=== PATIENT | male | born 1995 | race Caucasian/White ===

== ENCOUNTER 2021-11-22 15:00 | Outpatient (RCR) | payer OTHER, MEDICAID, SELFPAY ==
--- NOTE | 2021-10-22 13:57 | HP.PTEVAL ---
Patient's Visit Information KARL PENNY is a 26 year old M referred to Physical Therapy by MERRY BALLESTEROS with a diagnosis of Acute lymphoblastic leukemia.. Date of Evaluation: 10/22/21 Physical Therapist: Urban Rock DPT, OCS, CSCS - Visit Plan Frequency: 3x /Week Duration: 4-6 Weeks Plan: 3x/week x 4-6 weeks starting in pool for postural, core adn LE strengthening and HS and gastroc stretch and return to function. - Subjective Cancer doctor sent over to get stronger. He has had chemo and muscle have gotten weak and legs feel like they give out and makes it hard to walk. Using SBQC to get around for last 3 months. Will get walker and WC but uses cane right now. Had ALL acute lymphoblastic leukemia but says he is CA free since last Thursday. Had chemo since February and will continue maintenance chemo for 2 years. The chemo has created muscle loss and destroyed his body. No regular exercises. Tries to move around alot. Sleeps well. No pain. No numbness . No dizzyness. Not employed. Spends days at home, Goes out with family at times. Stays home alot. Is weak. Dresses self, needs help with laundry as it is in the basement. Steps are hard. One step at a time with mesh bag. Bathroom self and I in walk in shower. Cancer has made him weak since February of last year. First symptom was back pain late last year. Used to work in furniture store and play football. Wants to play football again. No recent falls in last 3 months. - Objective R weaker. Walks with SBWC I in R UE. Exits chair slowly without UE when asked but tends to use them.Steps reciprocal with two rail up and descend using R and turning sideways to avoid leg giving out with two rails. Walks without AD today but slow and hesitant and fearful of fatiguing. Sensation LE WNL to gross light touch. reflexes 2/3 patella and reflexes. Strength hips 3+, knees 4- and ankles 4/5. core abs 3+ and back extension 4-. UE strength 4- without myotomal problems. Weakness evident on steps and exitting chair. - Balance/Special Test Scores Functional Gait Assessment Score: 29 % Disability: 3.3400 Lower Extremity Functional Score: 24 - Goals Goal 1:: Walk community without AD without fear I Goal Time Frame: 4-6 Weeks Goal 2:: Steps reciprocally with one rail up and down Goal Time Frame: 4-6 Weeks Goal 3:: Pt feel 75% b jose in mobility and able to get around Goal Time Frame: 4-6 Weeks Goal 4:: I pool exercises for home pool Goal Time Frame: 4-6 Weeks Goal 5:: 44 on LEFS Goal Time Frame: 4-6 Weeks - Rehabilitation Potential Physical Therapy Diagnosis: weakness after treatment for leukemia causing difficulty with activity. Rehabilitation Potential: Good - Anticipated Interventions Patient/Client Instruction: Educate patient on: Condition, Plan of Care For the Purpose of:: To increase ROM, To improve muscle performance and motor function, To increase tolerance to activity/condition/position, To improve gait and locomotor functions Therapeutic Exercise to Include: Strength training, Endurance training, Flexibilty training, Gait and locomotor training For the Purpose of:: To improve muscle performance and motor function, To increase tolerance to activity/condition/position, To improve ability of physical actions for home/community/work/leisure, To improve gait and locomotor functions Thank you for the opportunity to evaluate your patient. For Medicare and Medicare HMO plans, please review the plan of care and approve it. It will need to be FAXED BACK to us at [phone] for Medicare purposes. For Medicare only, by signing this I certify the plan of care. Please let me know if there are questions or concerns regarding this plan of care. Physician Signature: Date:
--- NOTE | 2021-11-22 15:35 | HP.PTREVAL ---
MERRY BALLESTEROS, It has been my pleasure to treat KARL PENNY over the last 13 visits for Acute lymphoblastic leukemia.. Please see the progress note below for an update on the physical therapy plan of care! Subjective: Its been a month already. Getting better. Not using cane at all, walking without cane almost all of the time. Did a qucik jog up to door yesterday , felt impact on knees but could do it without falling. No pain. Back can hurt sometimes up and down. Doesn't worry about falling stepping off curbs anymore. Steps at home are not a problem. Doing stretches at home for calves, has pool at home and Y. wants to continue to work on LE strength, not sure he is quite ready to do it on his own yet. R leg may give out at times. To Dr. Ballesteros in early December. Objective/Function: Chair trasnfer I without UE, steps require rail and obvious B LE weakness in ecc lowering. Tightness in anterior knees standing from lower surface. Good balance. Overall better but not ready for I in pool yet and then would like to progress to gym exercises once I in pool Plan Plan: 3x/week for 2 more weeks in pool to work to I then 2 weeks of land based gym ex to continue strengthen and work to I. Will need new script from Annalisa Cerda to continue please and patient to call and request this. Balance/Gait/Functional tests - Balance/Special Test Scores Functional Gait Assessment Score: 29 % Disability: 3.3400 Lower Extremity Functional Score: 37 Goals Goal 1:: Walk community without AD without fear I Goal Time Frame: 4-6 Weeks Goal Progress: Goal Met Goal 2:: Steps reciprocally with one rail up and down Goal Time Frame: 4-6 Weeks Goal Progress: Goal Met Goal 3:: Pt feel 75% b jose in mobility and able to get around Goal Time Frame: 4-6 Weeks Goal Progress: 65% Goal 4:: I pool exercises for home pool Goal Time Frame: 4-6 Weeks Goal Progress: Progressing Goal 5:: 44 on LEFS Goal Time Frame: 4-6 Weeks Goal Progress: Progressing Anticipated Interventions Patient/Client Instruction: Educate patient on: Condition, Plan of Care For the Purpose of:: To increase ROM, To improve muscle performance and motor function, To increase tolerance to activity/condition/position, To improve gait and locomotor functions Therapeutic Exercise to Include: Strength training, Endurance training, Flexibilty training, Gait and locomotor training, In an aquatic setting For the Purpose of:: To improve muscle performance and motor function, To increase tolerance to activity/condition/position, To improve ability of physical actions for home/community/work/leisure, To improve gait and locomotor functions Please do not hesitate to contact me at [phone] by phone or if you have questions or concerns regarding this new plan of care! Sincerely, Urban Rock, DPT, OCS, CSCS
--- NOTE | 2022-01-21 13:11 | HP.PT.NRP ---
KARL PENNY was seen in my office for initial evaluation on 10/22/21. The following Plan of Care was established for this patient: Initial Frequency: 3x /Week Initial Duration: 4-6 Weeks Patient/Client Instruction: Educate patient on: Condition, Plan of Care For the Purpose of:: To increase ROM, To improve muscle performance and motor function, To increase tolerance to activity/condition/position, To improve gait and locomotor functions Therapeutic Exercise to Include: Strength training, Endurance training, Flexibilty training, Gait and locomotor training, In an aquatic setting For the Purpose of:: To improve muscle performance and motor function, To increase tolerance to activity/condition/position, To improve ability of physical actions for home/community/work/leisure, To improve gait and locomotor functions This patient was last seen in our office 11/22/21. Pertinent comments regarding their Physical therapy will appear below: Pt seen for initial POC and was 65% better. It was thought that he could benefit from 4 more weeks of therapy but patient did not schedule or attend these visits. At this point, it has been nearly two months and I will discontinue form my care. At this point I will be discontinuing this patient from physical therapy. I would be happy to see this patient again in the future if found appropriate by the physician. Thank you! Urban Rock, DPT, OCS, CSCS Balance/Gait/Functional tests - Balance/Special Test Scores Functional Gait Assessment Score: 29 % Disability: 3.3400 Lower Extremity Functional Score: 37
== END 2021-11-22 19:00 | disposition home or self-care (01) ==
LOC: PT 15:00
PROVIDERS: PCP Pediatrics
DX: M62.81 Muscle weakness (generalized) (principal); C91.00 Acute lymphoblastic leukemia not having achieved remission; Z79.52 Long term (current) use of systemic steroids; Z79.899 Other long term (current) drug therapy
CPT/HCPCS: 97113; 97162; 97164

== ENCOUNTER 2022-03-14 16:00 | Outpatient (RCR) | payer OTHER, MEDICAID, SELFPAY ==
--- NOTE | 2022-02-10 16:58 | HP.PTEVAL ---
Patient's Visit Information KARL PENNY is a 26 year old M referred to Physical Therapy by JAKE BALLESTEROS with a diagnosis of acute lymphoblastic leukemia. Date of Evaluation: 02/10/22 Physical Therapist: Atif Scales, PT, ATC - Visit Plan Frequency: 2-3x /Week Duration: 4-6 Weeks Plan: B LE strengthening, balance and proprio, core strengthening, bike, and HEP - Subjective Pt reports in February of 2021 he was diagnosed with cancer. Pt reports he had severe back pain that would not go away. Pt reports he had to have a lot of heavy chemo in order to get rid of the cancer. Pt reports this summer he was told he was finally cancer free. Pt reports he is now on a maintenance plan where he takes chemo pills and other treatments. Pt reports now he is just really weak. Pt notes he did have to walk with a cane a few mos ago, but is doing much better now. Pt is not currently working, but is hoping to work as soon as he gets stronger. Pt denies tingling and numbness at this time. Pt reports he has stairs at home and has no difficulty with stair negotiation. Pt reports he plans on being able to play semipro football when he recovers. Pt is not in any pain today. Pt reports he has balance concerns when he gets weak. - Objective Neuro: B LE sensation is WNL to light touch. B patellar reflex= 1/3. ROM: B LE's are WFL when compared bilaterally. MMT: B LE's are grossly 4/5 throughout. Stairs: Pt can ascend and descend 10 stairs without difficulty. Gait: Pt is able to ambulate greater than 1000 feet without difficulty - Balance/Special Test Scores Lower Extremity Functional Score: 46 - Goals Goal 1:: Increase B LE strength x 1 grade to aid with IADL's Goal Time Frame: 4-6 Weeks Goal 2:: I with HEP Goal Time Frame: 4-6 Weeks Goal 3:: Pt will be able to perform RTW requirements without limitation Goal Time Frame: 4-6 Weeks - Rehabilitation Potential Physical Therapy Diagnosis: Pt has LE weakness, decreased tolerance for activity, and difficulty with work requirements secondary to lymphoblatic leukemia Rehabilitation Potential: Good - Anticipated Interventions Patient/Client Instruction: Educate patient on: Condition, Plan of Care For the Purpose of:: To improve self management Therapeutic Exercise to Include: Strength training, Endurance training, Balance training, Dynamic Lumbar Stabilization For the Purpose of:: To improve muscle performance and motor function, To improve ability to perform ADL's, To improve ability of physical actions for home/community/work/leisure Thank you for the opportunity to evaluate your patient. For Medicare and Medicare HMO plans, please review the plan of care and approve it. It will need to be FAXED BACK to us at [phone] for Medicare purposes. For Medicare only, by signing this I certify the plan of care. Please let me know if there are questions or concerns regarding this plan of care. Physician Signature: Date:
--- NOTE | 2022-08-14 18:03 | HP.PT.NRP ---
KARL PENNY was seen in my office for initial evaluation on 02/10/22. The following Plan of Care was established for this patient: Initial Frequency: 2-3x /Week Initial Duration: 4-6 Weeks Patient/Client Instruction: Educate patient on: Condition, Plan of Care For the Purpose of:: To improve self management Therapeutic Exercise to Include: Strength training, Endurance training, Balance training, Dynamic Lumbar Stabilization For the Purpose of:: To improve muscle performance and motor function, To improve ability to perform ADL's, To improve ability of physical actions for home/community/work/leisure This patient was last seen in our office . Pertinent comments regarding their Physical therapy will appear below: Pt was treated for 9 PT visits for weakness through the date of 03/14/22. Pt has not returned through todays date and is discontinued at this time. At this point I will be discontinuing this patient from physical therapy. I would be happy to see this patient again in the future if found appropriate by the physician. Thank you! Atif Scales, PT, ATC Balance/Gait/Functional tests - Balance/Special Test Scores Lower Extremity Functional Score: 46
== END 2022-03-14 19:00 | disposition home or self-care (01) ==
LOC: PT 16:00
PROVIDERS: PCP Pediatrics
DX: C91.00 Acute lymphoblastic leukemia not having achieved remission (principal)
CPT/HCPCS: 97110; 97161

== ENCOUNTER 2022-07-11 14:12 | Emergency (ER) | payer OTHER, MEDICAID, SELFPAY ==
[2022-07-11 14:13] VITALS: BP 167/86; PULSE 85; RESP 14; TEMP 36.1; O2SAT 97; BMI 46.1
--- NOTE | 2022-07-11 14:27 | EDS_ITS ---
HPI <IRASEMA Garcia - Last Filed: 07/11/22 16:40> History of Present Illness Chief Complaint: Ear Problem Narrative Narrative: 27-year-old male is here with left ear pain. He states he has ALL and gets chemo and regular lumbar punctures. His last LP was 8 days ago and since then he started to have left facial and ear pain. He saw his oncologist 2 days ago who said he had ear infections and placed him on Augmentin and Polytrim drops. He has been using these with no improvement. He feels a full weakness and occasional ringing in his left ear. No fever or chills. [facility] <IRASEMA Garcia - Last Filed: 07/11/22 16:40> [facility] Medical History (Updated 07/11/22 @ 17:[address] Ezra Johansen MD) Leukemia Port-A-Cath in place Presence of IVC filter Home Medications dexamethasone 4 mg tablet mg 07/11/22 [History Last Taken Unknown] doxycycline hyclate 100 mg capsule 100 mg PO BID 7 days #14 caps 07/11/22 [Rx Last Taken Unknown] enoxaparin 120 mg/0.8 mL subcutaneous syringe 120 mg subcut BID 07/11/22 [History Last Taken Unknown] mercaptopurine 50 mg tablet 50 mg PO DAILY 07/11/22 [History Last Taken Unknown] Allergy/AdvReac Type Severity Reaction Status Date / Time No Known Allergies Allergy Verified 07/11/22 14:13 Social History Smoking Status: Never smoker ROS <IRASEMA Garcia - Last Filed: 07/11/22 16:40> ROS ED ROS Narrative Constitutional: Negative for fever, chills, malaise. ENT: Positive for ear pain. Negative for sore throat, rhinorrhea. CVS: Negative for palpitations, chest pain. Respiratory: Negative for shortness of breath, cough. Neuro: Negative for headache. Skin: Negative for rash, abscess, or wound. Musc: Negative for joint pain, swelling, trauma. EXAM <IRASEMA Garcia - Last Filed: 07/11/22 16:40> Physical Exam Narrative Exam Narrative: CONST: Patient sitting in no acute distress. EYES: Normal inspection. ENT: Normal inspection, moist mucous membranes and normal oropharynx. Nares clear. Right TM appears normal, left ear canal has small amount of yellow debris and erythema of the TM with bullous myringitis. No perforation. No external swelling or tenderness over the tragus or auricle, no mastoid erythema swelling or tenderness. NECK: Normal inspection. RESP: No respiratory distress, CTAB. CVS: Regular rate and rhythm, no murmur, no gallop. SKIN: Color normal, no rash, warm, dry, intact. EXTREMITIES: Normal appearance, no pedal edema. NEURO: Oriented x4. PSYCH: Normal affect. Const Vital Signs: 07/11/22 14:13 Temperature 97.0 F L Temperature Source Temporal Pulse Rate 85 Respiratory Rate 14 Blood Pressure 167/86 H Blood Pressure Mean 113 Pulse Ox 97 Oxygen Delivery Method Room Air <Dr. Ezra Johansen MD - Last Filed: 07/11/22 17:18> Physical Exam Const Vital Signs: 07/11/22 14:13 Temperature 97.0 F L Temperature Source Temporal Pulse Rate 85 Respiratory Rate 14 Blood Pressure 167/86 H Blood Pressure Mean 113 Pulse Ox 97 Oxygen Delivery Method Room Air <Dr. Ezra Johansen MD - Last Filed: 07/11/22 17:18> MDM MDM Narrative Medical decision making narrative: I have personally performed a face to face assessment of the patient and have reviewed the ANGELA Note. I performed a substantive portion of the visit including all aspects of the following. My culp findings include: History is complaining of left ear pain. He was prescribed Augmentin and Cortisporin otic drops on Thursday. He presents because of persistent symptoms. He denies loss of hearing. His hearing may be slightly muffled at best. He does use a Q-tip to clean his ears. He has not been in any water recently. He denies headache. He denies visual or ocular symptoms. He denies upper respiratory symptoms. Exam is left TM is consistent with bullous myringitis. Since there is a 4 to 8% incidence of mycoplasma infection will change antibiotic from Augmentin to doxycycline. Recommend continued use of Cortisporin drops. Of note he does not have discomfort with pulling of the left auricle or pushing on the left tragus. There is evidence though of inflammation of the external auditory canal. There is no narrowing of the canal. Medical Decision Making change antibiotic as described and continue eardrops. Other additions or changes: [None] Discharge Plan Triage Chief Complaint: Ear Problem ED Midlevel Provider: Angela Lundy ED Provider: Ezra Johansen Dx/Rx/DC Orders Clinical Impression: Acute pain of left ear, Bullous myringitis of left ear, Elevated blood pressure reading Instructions: ED Otitis Media Antibiotic ... Prescriptions: New doxycycline hyclate 100 mg capsule 100 mg PO BID 7 Days Qty: 14 0RF No Action dexamethasone 4 mg tablet mercaptopurine 50 mg tablet 50 mg PO DAILY enoxaparin 120 mg/0.8 mL syringe 120 mg subcut BID Primary Care Provider: Maria Isabel Landaverde Referrals: Maria Isabel Landaverde MD [Primary Care Provider] - Gaurang Whitman MD [Med Staff - Active Staff] - Activity Restrictions/Additional Instructions: Stop taking the amoxicillin/clavulanate and start taking doxycycline. Keep using the eardrops. I provided the phone number for the ear nose throat doctor if you are still having pain next week please be seen by their office. Disposition Disposition: Home, Self Care Discharge Date/Time: 07/11/22 14:53
[2022-07-11] MEDS: Doxycycline 100 MG CAPSULE PO (14:40)
== END 2022-07-11 14:53 | disposition home or self-care (01) ==
LOC: ED 14:47
PROVIDERS: Emergency Provider Emergency Medicine; PCP Pediatrics; Visit Provider Emergency Medicine
DX: H73.012 Bullous myringitis, left ear (principal); R51.9 Headache, unspecified; R03.0 Elevated blood-pressure reading, without diagnosis of hypertension
CPT/HCPCS: 99283; A4216

== ENCOUNTER 2022-10-19 15:49 | Emergency (ER) | payer OTHER, MEDICAID, SELFPAY ==
[2022-10-19] VITALS (9 sets, daily range): BP systolic 119–144; BP diastolic 58–78; PULSE 88–127; RESP 18–32; TEMP 37.2–39.5; O2SAT 96–127; BMI 48.2
--- NOTE | 2022-10-19 16:04 | EDS_ITS ---
HPI History of Present Illness Chief Complaint: Fever Informant: patient and parent Onset/Context/Timing Onset: Today Narrative Narrative: Patient presents secondary to fever. He has a history of ALL. Mother states today he was complaining of achiness in his back and legs along with a headache. She checked his temperature this morning and it was elevated. She spoke with the oncology team at [facility] and was instructed to give him Tylenol. 4 hours after Tylenol temperature was rechecked and was up to 103. At that time they recommended he come in for evaluation. Patient is a receiving a continuous infusion of a blend of antibodies in preparation for a bone marrow transplant which is scheduled for December. They state that he is not currently on chemotherapy but is still considered to be immunocompromised. He has not had significant cough or shortness of breath. He has had no vomiting or diarrhea. He denies urinary symptoms. He denies rash or skin lesions. I did note on a prior visit documentation that the patient receives regular LPs. He states the last LP was at least 6 weeks ago. He did not develop symptoms until late last night or early this morning. [facility] Medical History Leukemia Port-A-Cath in place Presence of IVC filter Home Medications dexamethasone 4 mg tablet mg 07/11/22 [History Last Taken Unknown] doxycycline hyclate 100 mg capsule 100 mg PO BID 7 days #14 caps 07/11/22 [Rx Last Taken Unknown] enoxaparin 120 mg/0.8 mL subcutaneous syringe 120 mg subcut BID 07/11/22 [History Last Taken Unknown] mercaptopurine 50 mg tablet 50 mg PO DAILY 07/11/22 [History Last Taken Unknown] Allergy/AdvReac Type Severity Reaction Status Date / Time nickel AdvReac Rash Verified 10/19/22 15:53 Social History Smoking Status: Never smoker ROS ROS ED Constitutional Constitutional ED: Reports fever(s) Eyes Eyes: Denies change in vision or discharge from eye(s) ENT ENT ED: Denies discharge from eye(s), rhinorrhea or sore throat Cardiovascular Cardiovascular: Denies chest pain or palpitations Respiratory/Chest Respiratory/Chest: Denies cough or dyspnea Gastrointestinal Gastrointestinal: Denies abdominal pain, diarrhea, nausea or vomiting Genitourinary Genitourinary ED: Denies dysuria Musculoskeletal Musculoskeletal: Reports back pain, extremity pain and myalgias Integumentary Denies Abrasions or rash Neurologic Neurologic: Reports headache(s); Denies weakness Psychiatric Psychiatric: Denies anxiety or depression Allergic/Immunologic Allergic/Immunologic ED: Denies lip swelling or urticaria EXAM Physical Exam Const Vital Signs: 10/19/22 15:51 10/19/22 16:02 10/19/22 16:25 Temperature 101.6 F H Temperature Source Oral Pulse Rate 127 H 113 H Respiratory Rate 20 H 32 H Respiratory Pattern Blood Pressure 144/77 H Blood Pressure Mean 99 Pulse Ox 127 97 97 Oxygen Delivery Method Room Air Room Air Room Air 10/19/22 16:25 10/19/22 17:03 10/19/22 17:23 Temperature 103.1 F H Temperature Source Oral Pulse Rate 112 H 107 H Respiratory Rate 30 H 27 H Respiratory Pattern Tachypnea Blood Pressure 142/78 H 121/61 H Blood Pressure Mean 99 81 Pulse Ox 97 96 Oxygen Delivery Method Room Air Room Air Positive well nourished and well developed General Appearance ED: well developed HEENT Reports moist mucous membranes Eyes PERRL and EOMs intact bilaterally Neck no lymphadenopathy Neck Narrative: No meningismus. Chest Wall inspection of chest normal and palpation of chest normal Resp normal respiratory effort and clear to auscultation bilaterally Cardio regular rhythm Rate: tachycardic GI non-tender Auscultation: hypoactive bowel sounds Palpation: soft Extremity normal to inspection Neuro oriented x3 and no sensory deficits noted Motor Exam: strength 5/5 throughout Psych mental status grossly normal Skin no rashes or lesions noted MDM MDM MDM Narrative Medical decision making narrative: Sepsis work-up was initiated. Patient given Tylenol on arrival for fever of 101.6. Swab for COVID and influenza added to the sepsis work-up. Lab Data Attestation: I reviewed the patient's lab results. Labs: Laboratory Results - last 24 hr 10/19/22 10/19/22 10/19/22 16:15 16:15 16:15 WBC 2.2 L RBC 3.97 L Hgb 12.5 L Hct 37.3 L MCV 94.0 MCH 31.5 MCHC 33.5 RDW Std Deviation 64.0 H RDW Coeff of Jacqueline 18.6 H Plt Count 96 L MPV 9.3 Immature Gran % (Auto) 0.000 Neut % (Auto) 45.1 L Lymph % (Auto) 16.7 L Lasalle % (Auto) 1.9 Eos % (Auto) 35.8 H Baso % (Auto) 0.5 Absolute Neuts (auto) 1.0 L Absolute Lymphs (auto) 0.36 L Nucleated RBC % 0 Differential Comment SCANNED Diff Path Review May foll PT 15.3 H INR 1.2 APTT 38.3 H Sodium 135 L Potassium 3.8 Chloride 103 Carbon Dioxide 25.0 Anion Gap 7 BUN 16 Creatinine 1.07 Estim Creat Clear Calc 119.27 Est GFR (MDRD) Af Amer 108 Est GFR (MDRD) Non-Af 89 BUN/Creatinine Ratio 15.0 Glucose 118 H Lactic Acid Calcium 8.7 Total Bilirubin 1.50 H AST 22 ALT 27 Alkaline Phosphatase 84 Total Protein 7.1 Albumin 3.3 Globulin 3.8 Albumin/Globulin Ratio 0.9 10/19/22 16:15 WBC RBC Hgb Hct MCV MCH MCHC RDW Std Deviation RDW Coeff of Jacqueline Plt Count MPV Immature Gran % (Auto) Neut % (Auto) Lymph % (Auto) Lasalle % (Auto) Eos % (Auto) Baso % (Auto) Absolute Neuts (auto) Absolute Lymphs (auto) Nucleated RBC % Differential Comment Diff Path Review PT INR APTT Sodium Potassium Chloride Carbon Dioxide Anion Gap BUN Creatinine Estim Creat Clear Calc Est GFR (MDRD) Af Amer Est GFR (MDRD) Non-Af BUN/Creatinine Ratio Glucose Lactic Acid 1.3 Calcium Total Bilirubin AST ALT Alkaline Phosphatase Total Protein Albumin Globulin Albumin/Globulin Ratio Radiography Chest X-Ray - ED: 1 View, Read by ED Physician, No Infiltrates and - (Port in place in right chest.) Diagnostic Testing: Clinical Impression(s) from Imaging Studies Chest X-Ray 10/19/22 16:30 IMPRESSION: Right jugular Port-A-Cath. There is no acute cardiopulmonary disease. Electronically Signed: Bin Trevino DO at 16:53 EDT Reading Location ID and State: [address] [place] [address] Tel [phone], Service support , EKG Initial EKG: Attestation: I personally reviewed and interpreted this EKG as follows: Interpretation: Sinus Tachycardia (Sinus tach at 117 with no acute ischemia.) Treatment and Re-Evaluation :: Blood and urine cultures have been sent. CBC reveals a white count of 2.2 with 1000 absolute neutrophils. This does qualify as neutropenic fever. Hemoglobin is 12.5 and platelet count is 96,000. Coags reveal an INR of 1.2. Chemistry studies are unremarkable with normal renal function. LFTs reveal a total bili of 1.50, otherwise all values normal. Lactic acid is normal at 1.3. Swab for COVID and influenza is negative. Patient has not yet been able to provide a urine sample for us. Given his labs do confirm neutropenic fever he was ordered a dose of Zosyn. 1 hour after receiving Tylenol his repeat temperature is increased to 103. I spoke with Dr. Colin, on-call for heme-onc at [facility]. He does state that it is okay for single dose ibuprofen intermittently, however use with caution given his thrombocytopenia. He will be given ibuprofen. He also requested a dose of 8 mg of IV dexamethasone due to concern for possible c ytokine release syndrome given the antibody infusion he is receiving. Patient has been accepted in transfer and we will await bed assignment at [facility]. Discharge Plan Triage Chief Complaint: Fever ED Provider: Eufemia Coley Dx/Rx/DC Orders Clinical Impression: Neutropenic fever Prescriptions: No Action dexamethasone 4 mg tablet mercaptopurine 50 mg tablet 50 mg PO DAILY enoxaparin 120 mg/0.8 mL syringe 120 mg subcut BID doxycycline hyclate 100 mg capsule 100 mg PO BID 7 Days Qty: 14 0RF Primary Care Provider: Care Physician,No Primary Referrals: [facility] Doctor,Out of [Non-Staff] - Disposition Disposition: Acute Care Hospital Discharge Location: [facility]
[2022-10-19] MEDS: Acetaminophen 500 MG Tablet 1000 MG PO (16:14)
--- NOTE | 2022-10-19 16:30 | RAD_ITS ---
STUDY: X-RAY CHEST REASON FOR EXAM: Male, 27 years old. Fever of 103 with back pain. TECHNIQUE: Single AP portable view of the chest. COMPARISON: None. FINDINGS: Right jugular Port-A-Cath with its tip in the atrial caval junction. The lungs are clear and expanded. There is no demonstrated pleural abnormality. Normal size heart. Normal mediastinum and zeus. Normal visualized pulmonary arteries. Normal visualized aortic arch and descending thoracic aorta. Normal visualized thoracic spine. Normal visualized ribs, clavicles, and shoulders. There is no demonstrated abnormality of the visualized soft tissue structures of the upper abdomen. RAD/Chest 1 View (Portable) IMPRESSION: Right jugular Port-A-Cath. There is no acute cardiopulmonary disease. Electronically Signed: Bin Trevino DO at 16:53 EDT ,
[2022-10-19 16:32] LABS: Absolute Lymphocyte Count 0.36 X10^3/uL (0.83-4.51); Basophil# 0.01 X10^3/uL; Basophil% 0.5 % (0-1); Eosinophil# 0.77 X10^3/uL; Eosinophils% 35.8 % (0-5); Hematocrit 37.3 % (40-54); Hemoglobin 12.5 g/dL (13.0-16.5); Lymphocyte # 0.36 X10^3/ul (0.83-4.51); Lymphocyte % 16.7 % (19-41); Mean Corp Hgb Conc 33.5 g/dL (32-36); Mean Corpuscular Hgb 31.5 pg (27.0-32.0); Mean Platelet Vol. 9.3 fl (6.2-12.0); Monocyte# 0.04 X10^3/uL; Monocyte% 1.9 % (0-10); NRBC Flagged by Analyzer 0 % (0-5); Neutrophil # 0.97 X10^3/uL (2.7-7.7); Neutrophil % 45.1 % (47-70); POSITIVE COUNT YES; POSITIVE DIFFERENTIAL YES; Platelet Count 96 K/mm3 (150-450); RBC Distribution Width CV 18.6 % (11.6-14.6); Red Blood Count 3.97 M/mm3 (4.6-6.2); White Blood Count 2.2 K/mm3 (4.4-11.0)
[2022-10-19 16:40] LABS: International Normalized Ratio 1.2; Prothrombin Time (Protime)PT. 15.3 SECONDS (11.7-14.9)
[2022-10-19 16:41] LABS: Partial Thromboplast Time 38.3 Seconds (24.1-36.2)
[2022-10-19 16:47] LABS: ALB/GLOB Ratio 0.9 RATIO (0.9-2.4); AST(SGOT) 22 U/L (15-37); Alanine Aminotransfer ALT/SGPT 27 U/L (16-61); Albumin, Serum 3.3 g/dL (3.2-5.0); Alkaline Phosphatase 84 U/L (45-117); Anion Gap 7 (5-15); BUN 16 mg/dL (7-18); Calcium,Total 8.7 mg/dL (8.5-10.1); Chloride 103 mmol/L (98-107); Creatinine, Serum 1.07 mg/dL (0.70-1.30); EST Glomerular Filtration Rate 89 mL/min (>60); Est Glom Filt Rate - Afr Amer 108 mL/min (>60); Estimated Creatinine Clearance 119.27 ml/min; Globulin 3.8 g/dL (2.2-4.2); Glucose 118 mg/dL (74-106); Potassium 3.8 mmol/L (3.5-5.1); Protein, Total 7.1 g/dL (6.4-8.2); Sodium Level 135 mmol/L (136-145)
[2022-10-19 16:48] LABS: Differential Indicated SCAN CRITERIA MET
[2022-10-19 16:56] LABS: Lactic Acid 1.3 mmol/L (0.4-1.9)
[2022-10-19 17:24] LABS: Differential Comment SCANNED
[2022-10-19] MEDS: Ibuprofen 600 MG Tablet PO (18:10)
[2022-10-19] MEDS: dexAMETHasone 10 MG/ML Vial 8 MG IV (18:11)
[2022-10-19] MEDS: 0.9% Normal Saline 1,000 ML 150 ML IV (19:00)
--- NOTE | 2022-10-19 19:18 | ED.RN ---
ABLE TO URINATE AT THIS TIME SPECIMEN COLLECTED. POST ANTIBIOTIC
[2022-10-19 19:19] LABS: Mucous, Urine 0 SEEN /hpf (<or=2+); Red Blood Cells-Urine 0 SEEN /hpf (0-5); Squamous Epithelial Cells - UA 0 SEEN /hpf (0-5); White Blood Cells 0 SEEN /hpf (0-5)
[2022-10-19 19:22] LABS: Color, Urine Yellow (Yellow); Glucose, Dipstick Normal (Normal); Ketone-Dipstick Negative (Negative); Leukocyte Esterase-Dipstick Negative /ul (Negative); Nitrite-Dipstick Negative (Negative); Occult Blood-Urine Negative /ul (Negative); Protein-Dipstick 30 mg/dl (Negative); Urine Bilirubin Dipstick Negative (Negative); Urine Clarity Clear (Clear); Urine Urobilinogen Normal (Normal)
[2022-10-19 19:31] LABS: Bacteria RARE /hpf (None Seen)
[2022-10-20 13:11] LABS: Pathologist Review Reviewed
== END 2022-10-19 20:12 | disposition short-term general hospital (02) ==
PROVIDERS: Emergency Provider Emergency Medicine; Visit Provider Emergency Medicine
DX: D70.9 Neutropenia, unspecified (principal); D84.9 Immunodeficiency, unspecified; D69.6 Thrombocytopenia, unspecified; R51.9 Headache, unspecified
CPT/HCPCS: 71045; 80053; 81001; 83605; 85025; 85610; 85730; 87040; 87086; 87428; 93005; 96361; 96365; 96375; 99285; J7030; J7050; A4216

== ENCOUNTER 2023-09-05 13:51 | Emergency (ER) | payer MEDICARE, MEDICAID, SELFPAY ==
[2023-09-05 13:52] VITALS: BP 123/81; PULSE 100; RESP 16; TEMP 36.2; O2SAT 98; BMI 41.7
--- NOTE | 2023-09-05 15:31 | EX.ED.DYSGE1 ---
HPI <IRASEMA Dumont - Last Filed: 09/05/23 19:51> History of Present Illness Chief Complaint: Lower Extremity Injury Narrative Narrative: Patient presenting today with bilateral anterior knee pain that started this morning when he woke up. He denies any injury or trauma to his knees. He reports that he has noticed slight bilateral leg edema over the past 3 to 4 days. He reports that he does have a remote history of DVT in his left lower extremity and IVC filter. He was started back on his Eliquis over a month ago due to stable platelet levels and is compliant with this. He does have a history of ALL and had a bone marrow transplant in January. He is no longer on chemotherapy and has been stable in regards to his ALL. PFS <IRASEMA Dumont - Last Filed: 09/05/23 19:51> [facility] Medical History Leukemia Port-A-Cath in place Presence of IVC filter Home Medications dexamethasone 4 mg tablet mg 07/11/22 [History Last Taken Unknown] doxycycline hyclate 100 mg capsule 100 mg PO BID 7 days #14 caps 07/11/22 [Rx Last Taken Unknown] enoxaparin 120 mg/0.8 mL subcutaneous syringe 120 mg subcut BID 07/11/22 [History Last Taken Unknown] mercaptopurine 50 mg tablet 50 mg PO DAILY 07/11/22 [History Last Taken Unknown] Allergy/AdvReac Type Severity Reaction Status Date / Time nickel AdvReac Rash Verified 09/05/23 13:52 Social History Smoking Status: Never smoker ROS <IRASEMA Dumont - Last Filed: 09/05/23 19:51> ROS ED Constitutional Constitutional ED: Denies chills or fever(s) Cardiovascular Cardiovascular: Denies chest pain Respiratory/Chest Respiratory/Chest: Denies cough or dyspnea Gastrointestinal Gastrointestinal: Denies abdominal pain, nausea or vomiting Musculoskeletal Musculoskeletal: Reports arthralgias; Denies myalgias Integumentary Denies rash Neurologic Neurologic: Denies weakness EXAM <IRASEMA Dumont - Last Filed: 09/05/23 19:51> Physical Exam Const Vital Signs: 09/05/23 13:52 09/05/23 15:38 Temperature 97.1 F L Temperature Source Temporal Pulse Rate 100 Respiratory Rate 16 Respiratory Effort Normal Respiratory Pattern Normal Blood Pressure 123/81 H Blood Pressure Mean 95 Pulse Ox 98 Oxygen Delivery Method Room Air Positive well nourished, well developed and no apparent distress General Appearance ED: well developed HEENT Reports normocephalic and head/scalp atraumatic Mouth ED: Yes moist mucous membranes normal Eyes PERRL and EOMs intact bilaterally Neck full ROM and supple Chest Wall inspection of chest normal Resp normal respiratory effort and clear to auscultation bilaterally Cardio regular rate and regular rhythm GI soft to palpation, non-tender, non-distended and no masses Back/Spine normal ROM and normal to inspection Extremity normal to inspection and full ROM Extremity Narrative: No joint effusion or erythema to the bilateral knees, full range of motion to the knees bilaterally. No pain to palpation to the knees. Bilateral DP pulse 2+, good capillary refill, sensation intact. Very slight edema to the bilateral lower extremities, this is equal. Negative Homans' sign bilaterally. Neuro oriented x3, CN's II-XII intact bilaterally, moves all extremities, no focal motor deficits and no sensory deficits noted Sensorium / Orientation: awake and alert Psych mental status grossly normal and thought process normal Skin no rashes or lesions noted and no wounds <oJse Luis Diego MD - Last Filed: 09/05/23 21:16> Physical Exam Const Vital Signs: 09/05/23 13:52 09/05/23 15:38 Temperature 97.1 F L Temperature Source Temporal Pulse Rate 100 Respiratory Rate 16 Respiratory Effort Normal Respiratory Pattern Normal Blood Pressure 123/81 H Blood Pressure Mean 95 Pulse Ox 98 Oxygen Delivery Method Room Air [facility] <IRASEMA Dumont - Last Filed: 09/05/23 19:51> [facility] Narrative Medical decision making narrative: Patient presenting due to bilateral knee pain that started this morning when he woke up. He has felt like his bilateral lower extremities have been slightly swollen over the past few days. He does not have any joint effusion or erythema, no signs of septic joint to his knees bilaterally. Negative Homans' sign bilaterally. Low suspicion for DVT given he is on Eliquis. We do not currently have ultrasound capabilities to performed venous duplex ultrasounds, however did offer to refer patient for outpatient testing tomorrow. Patient declines and reports he would rather follow-up with his PCP. I did consider obtaining an x-ray of the knees bilaterally, however, given patient did not have any injury to his knees I do not feel this will be helpful. RICE instructions were discussed, he will be discharged home in stable condition and is comfortable with plan. <Jose Luis Diego MD - Last Filed: 09/05/23 21:16> [facility] Narrative Medical decision making narrative: Patient presenting due to bilateral knee pain that started this morning when he woke up. He has felt like his bilateral lower extremities have been slightly swollen over the past few days. He does not have any joint effusion or erythema, no signs of septic joint to his knees bilaterally. Negative Homans' sign bilaterally. Low suspicion for DVT given he is on Eliquis. We do not currently have ultrasound capabilities to performed venous duplex ultrasounds, however did offer to refer patient for outpatient testing tomorrow. Patient declines and reports he would rather follow-up with his PCP. I did consider obtaining an x-ray of the knees bilaterally, however, given patient did not have any injury to his knees I do not feel this will be helpful. EDUARDO instructions were discussed, he will be discharged home in stable condition and is comfortable with plan. Dr. Diego: I have personally performed a face to face assessment of the patient and have reviewed the ANGELA Note. I performed a substantive portion of the visit including all aspects of the following. My culp findings include: History is bilateral inner thigh pain, left greater than right, history of DVT in left lower extremity. Patient was off his Eliquis since January, but started it again a month ago because his platelets were high enough. He did not have pain in his left leg until today. He states yesterday everything was fine. He has not missed a dose of his Eliquis. Exam is afebrile. Vital signs noted. Regular rate and rhythm. Lungs clear to auscultation bilaterally. Abdomen soft nontender with normoactive bowel sounds. Mild tenderness to palpation left distal femur medially, no erythema, no palpable cord. Medical Decision Making: Lengthy discussion with the patient and his mother regarding ultrasound. I have low suspicion for DVT as the patient has been on Eliquis for a month so I feel that he is properly anticoagulated. Ultrasound was offered as an outpatient as it is unavailable at this time, but they declined. They prefer to follow-up with their cancer center in [place]. [id number] medications. Discharge. Other additions or changes: [None] History & Record Review Discussion w/independent historian: Patient and Family (Mother) Discharge Plan Triage Chief Complaint: Lower Extremity Injury Other Complaint: Other, Pain/Inj ED Midlevel Provider: Stefania Garcia ED Provider: Jose Luis Deigo Dx/Rx/DC Orders Clinical Impression: Bilateral leg edema, Bilateral knee pain Instructions: ED Peripheral Edema, Bilateral, ED Knee Pain of Uncertain Cause Prescriptions: No Action dexamethasone 4 mg tablet mercaptopurine 50 mg tablet 50 mg PO DAILY enoxaparin 120 mg/0.8 mL syringe 120 mg subcut BID doxycycline hyclate 100 mg capsule 100 mg PO BID 7 Days Qty: 14 0RF Primary Care Provider: Care Physician,No Primary Referrals: Care Physician,No Primary [Primary Care Provider] - Activity Restrictions/Additional Instructions: Follow-up with your PCP and return for any worsening of your symptoms. Disposition Disposition: Home, Self Care Discharge Date/Time: 09/05/23 15:40
== END 2023-09-05 15:40 | disposition home or self-care (01) ==
PROVIDERS: Emergency Provider Emergency Medicine; Visit Provider Emergency Medicine
DX: R60.0 Localized edema (principal); C91.01 Acute lymphoblastic leukemia, in remission; M25.562 Pain in left knee; M25.561 Pain in right knee; Z86.718 Personal history of other venous thrombosis and embolism; Z79.01 Long term (current) use of anticoagulants
CPT/HCPCS: 99283

== ENCOUNTER 2023-09-27 20:32 | Emergency (ER) | payer MEDICARE, MEDICAID, SELFPAY ==
[2023-09-27 20:32] VITALS: BP 141/68; PULSE 93; RESP 18; TEMP 37; O2SAT 99; BMI 43.9
[2023-09-27 20:35] VITALS: BP 141/68; PULSE 86; PULSE 95; RESP 18; RESP 19; TEMP 37; O2SAT 98
--- NOTE | 2023-09-27 21:00 | EX.ED.DYSGE1 ---
HPI <IRASEMA Garcia - Last Filed: 09/27/23 22:05> History of Present Illness Chief Complaint: Lower Extremity Injury Narrative Narrative: 28-year-old male with past medical history of ALL status post bone marrow transplant in 2022, DVT/PE states this morning he noticed a red spot on his right foot and developed pain. Over the last hour the redness has spread up the foot and it hurts to put weight on it. He has chronic bilateral lower extremity swelling from being on prednisone. He states since his bone marrow transplant he has been on prednisone, tacrolimus and amoxicillin 250 mg twice daily. He denies recent fever or chills. He was on Eliquis for history of DVT/PE but whenever his platelets drop below 50 is told to discontinue by his drawing machine operator. He stopped taking Eliquis on 09/21/2023 due to thrombocytopenia. [facility] <IRASEMA Garcia - Last Filed: 09/27/23 22:05> [facility] Medical History (Updated 09/27/23 @ 22:04 by IRASEMA Garcia) Ileostomy in place Port-A-Cath in place Presence of IVC filter Leukemia Home Medications ?Medication ?Instructions ?Recorded ?Last Taken ?Type apixaban 5 mg tablet (Eliquis) 5 mg PO .COMPLEX 09/27/23 Unknown History magnesium oxide 400 mg (241.3 mg 800 mg PO BID 09/27/23 Unknown History magnesium) tablet oxycodone-acetaminophen 5 mg-325 1 tab PO Q6H PRN PRN Pain 3 days 09/27/23 Unknown Rx mg tablet #12 TABLETS pantoprazole 40 mg tablet,delayed 40 mg PO BID 09/27/23 Unknown History release posaconazole 100 mg tablet,delayed 300 mg PO DAILY 09/27/23 Unknown History release prednisone 10 mg tablet 5 mg PO DAILY 09/27/23 Unknown History ruxolitinib 5 mg tablet (Jakafi) 5 mg PO BID 09/27/23 Unknown History sulfamethoxazole 800 1 tab PO .COMPLEX 09/27/23 Unknown History mg-trimethoprim 160 mg tablet tacrolimus 0.5 mg capsule, 2 mg PO DAILY 09/27/23 Unknown History immediate-release Allergy/AdvReac Type Severity Reaction Status Date / Time nickel AdvReac Rash Verified 09/05/23 13:52 Social History Smoking Status: Never smoker ROS <IRASEMA Garcia - Last Filed: 09/27/23 22:05> ROS ED ROS Narrative Constitutional: Negative for fever, chills, malaise. Neuro: Negative for motor/sensory dysfunction. Skin: Positive for erythema. No wound. Musc: Positive for chronic bilateral lower extremity edema. No trauma. EXAM <IRASEMA Garcia - Last Filed: 09/27/23 22:05> Physical Exam Narrative Exam Narrative: CONST: Patient sitting in no acute distress. EYES: Normal inspection. NECK: Normal inspection. RESP: No respiratory distress, CTAB. CVS: Regular rate and rhythm, no murmur, no gallop. SKIN: Color normal, no rash, warm, dry, intact. EXTREMITIES: Chronic symmetric bilateral ankle and foot pitting edema. Scattered mild areas of petechiae on right dorsal foot superimposed on background of warmth and erythema top of the foot. No lymphangitic streaking. No crepitus or fluctuance. Tender to touch. 2+ DP pulses. NEURO: Alert and answering questions appropriately. PSYCH: Normal affect. Const Vital Signs: 09/27/23 20:32 09/27/23 20:35 09/27/23 20:35 Temperature 98.6 F 98.6 F 98.6 F Temperature Source Temporal Temporal Temporal Pulse Rate 93 95 86 Respiratory Rate 18 19 H 18 Blood Pressure 141/68 H 141/68 H 141/68 H Blood Pressure Mean 92 92 92 Pulse Ox 99 98 98 Oxygen Delivery Method Room Air Room Air Room Air 09/27/23 21:47 09/27/23 22:00 09/27/23 22:32 Temperature 99.5 F H 98.3 F Temperature Source Oral Oral Pulse Rate 90 87 Respiratory Rate 18 16 Blood Pressure 124/84 H 128/76 H 128/76 H Blood Pressure Mean 97 93 93 Pulse Ox 100 100 Oxygen Delivery Method Room Air Room Air 09/27/23 23:00 Temperature 98.9 F Temperature Source Oral Pulse Rate 76 Respiratory Rate 18 Blood Pressure 116/62 Blood Pressure Mean 80 Pulse Ox 100 Oxygen Delivery Method Room Air <Dr. Danielito Ford DO - Last Filed: 09/27/23 23:49> Physical Exam Const Vital Signs: 09/27/23 20:32 09/27/23 20:35 09/27/23 20:35 Temperature 98.6 F 98.6 F 98.6 F Temperature Source Temporal Temporal Temporal Pulse Rate 93 95 86 Respiratory Rate 18 19 H 18 Blood Pressure 141/68 H 141/68 H 141/68 H Blood Pressure Mean 92 92 92 Pulse Ox 99 98 98 Oxygen Delivery Method Room Air Room Air Room Air 09/27/23 21:47 09/27/23 22:00 09/27/23 22:32 Temperature 99.5 F H 98.3 F Temperature Source Oral Oral Pulse Rate 90 87 Respiratory Rate 18 16 Blood Pressure 124/84 H 128/76 H 128/76 H Blood Pressure Mean 97 93 93 Pulse Ox 100 100 Oxygen Delivery Method Room Air Room Air 09/27/23 23:00 Temperature 98.9 F Temperature Source Oral Pulse Rate 76 Respiratory Rate 18 Blood Pressure 116/62 Blood Pressure Mean 80 Pulse Ox 100 Oxygen Delivery Method Room Air [facility] <IRASEMA Garcia - Last Filed: 09/27/23 22:05> [facility] Narrative Medical decision making narrative: History gathered from: Patient and mom Differential: Petechial hemorrhage cytopenia, cellulitis, DVT Patient has extensive past medical history with a LL status post bone marrow transplant on immunosuppressants. Also has history of DVT/PE but discontinued Eliquis a week ago due to thrombocytopenia. He presents with right foot pain and redness. The dorsal right foot has petechia and erythema and warmth. Neurovascularly intact. He has no calf pain or tenderness. Labs show pancytopenia with WBC of 2.2, Hgb 7.6, PLT 40. He gets blood work weekly and states it was hemoglobin was 8.5 last week. BMP shows no major abnormalities. Lactic and blood cultures ordered. Lab Data Attestation: I reviewed the patient's lab results. Labs: Laboratory Results - last 24 hr 09/27/23 09/27/23 21:20 21:44 WBC 2.2 L RBC 2.32 L Hgb 7.6 L Hct 23.9 L MCV 103.0 H MCH 32.8 H MCHC 31.8 L RDW Std Deviation 72.9 H RDW Coeff of Jacqueline 19.7 H Plt Count 40 L* MPV 8.0 Immature Gran % (Auto) 2.700 H Neut % (Auto) 69.4 Lymph % (Auto) 19.2 [place] % (Auto) 8.2 Eos % (Auto) 0.5 Baso % (Auto) 0.0 Absolute Neuts (auto) 1.5 L Absolute Lymphs (auto) 0.42 L Nucleated RBC % 2.3 Differential Comment SCANNED Diff Path Review May foll Platelet Estimate MKD DEC Hypochromasia 1+ Anisocytosis 2+ Microcytosis 1+ Macrocytosis 1+ Sodium 145 Potassium 3.4 L Chloride 112 H Carbon Dioxide 25.0 Anion Gap 8 BUN 18 Creatinine 0.84 Estim Creat Clear Calc 204.14 Est GFR (MDRD) Af Amer 141 Est GFR (MDRD) Non-Af 117 BUN/Creatinine Ratio 21.4 H Glucose 133 H Lactic Acid 2.0 Calcium 8.2 L Radiography Diagnostic Testing: Clinical Impression(s) from Imaging Studies Foot X-Ray 09/27/23 22:02 IMPRESSION: Negative right foot x-rays. Electronically Signed: Tone Weinberg MD at 23:42 EDT , <Dr. Danielito Ford, DO - Last Filed: 09/27/23 23:49> MDM MDM Narrative Medical decision making narrative: History gathered from: Patient and mom Differential: Petechial hemorrhage cytopenia, cellulitis, DVT Patient has extensive past medical history with a LL status post bone marrow transplant on immunosuppressants. Also has history of DVT/PE but discontinued Eliquis a week ago due to thrombocytopenia. He presents with right foot pain and redness. The dorsal right foot has petechia and erythema and warmth. Neurovascularly intact. He has no calf pain or tenderness. Labs show pancytopenia with WBC of 2.2, Hgb 7.6, PLT 40. He gets blood work weekly and states it was hemoglobin was 8.5 last week. BMP shows no major abnormalities. Lactic and blood cultures ordered. Interventions / MDM: Differential diagnosis: Pancytopenia, petechial hemorrhage, history of AL L Diagnosis considered but do not suspect: Fracture however x-ray negative. Cellulitis however skin blanching with no subjective chills or sweats. No clinical necrotizing fasciitis, no soft tissue gas on x-ray. My EKG interpretation: N/A Imaging independently reviewed and interpreted by myself: Three-view x-ray right foot: No fracture, soft tissue swelling, no soft tissue gas External documents reviewed: N/A Test considered but not ordered:N/A ED course: Attending note: Patient seen and evaluated with lead systems engineer. I perform my own [id number] evaluation. I agree with the plan of work-up. History of [facility] bone marrow transport last year on immunosuppressants along with weaning down of prednisone. He is followed by pulmonary transplant [facility] Pandey. She has had PE DVT on Eliquis. He gets blood drawn weekly states has thrombocytopenia with platelets go below 50 hold since to decrease risk of bleeds. This was held last week with platelets 48. Presenting increasing nontraumatic right foot pain since this morning. Unable to bear weight. No fevers or chills. Exam swelling to the foot, there is erythema dorsal foot to the lateral ankle however this all blanches. There is no crepitus. There are petechial lesions to the dorsal distal aspect of the foot. He had labs drawn. Pancytopenic white count 2.2 hemoglobin 7.6 platelets 40. Reviewing of his last labs on his phone had hemoglobin 8.5 a week ago white count 2.4 and platelets of 28. X-rays ordered of his foot due to pain, blood cultures and lactic acid with his neutropenia. Peers less likely cellulitis with blanching of the erythema throughout the foot and lateral ankle. 2310: X-ray negative. Reevaluation of the foot myself, increasing petechial lesion now to the dorsal lateral aspect of the foot. Erythema still blanches. More comfortable after morphine. Vitals are stable. Lactic acid 2.0. Will reach out to bone marrow transplant team at [facility] for disposition plans. 2340: Discussed with the bone marrow transplant fellow at [facility], [place], discussed patient's history findings and progression of the petechiae. She states patient has tolerated lower platelets without transfusions was even close to 20. She is not concerned with the petechia at this time there is no other bleeding issues. Discussed to continue to hold his Eliquis. Discussed with her no clinical concerns for cellulitis or necrotizing fasciitis. She agrees with pain control which he has tolerated Percocet in the past. Postop shoe and crutches. She will message Dr. Pandey for an earlier appointment. Discussed tricked return precautions with the patient worsening fevers or petechiae that goes up his leg or any clinic go new bleeding issues. Patient mother understands and agrees with plan. All questions were answered. Re-evaluation: stable Disposition discussed with patient/family/significant other: Patient and mother Case discussed with consulting clinician: Bone marrow transplant team at [facility] This note was generated with [employer] dictation software. It may contain incorrect words, spelling, and punctuation that were not noted in checking the note before signing. Lab Data Labs: Laboratory Results - last 24 hr 09/27/23 09/27/23 21:20 21:44 WBC 2.2 L RBC 2.32 L Hgb 7.6 L Hct 23.9 L MCV 103.0 H MCH 32.8 H MCHC 31.8 L RDW Std Deviation 72.9 H RDW Coeff of Jacqueline 19.7 H Plt Count 40 L* MPV 8.0 Immature Gran % (Auto) 2.700 H Neut % (Auto) 69.4 Lymph % (Auto) 19.2 [place] % (Auto) 8.2 Eos % (Auto) 0.5 Baso % (Auto) 0.0 Absolute Neuts (auto) 1.5 L Absolute Lymphs (auto) 0.42 L Nucleated RBC % 2.3 Differential Comment SCANNED Diff Path Review May foll Platelet Estimate MKD DEC Hypochromasia 1+ Anisocytosis 2+ Microcytosis 1+ Macrocytosis 1+ Sodium 145 Potassium 3.4 L Chloride 112 H Carbon Dioxide 25.0 Anion Gap 8 BUN 18 Creatinine 0.84 Estim Creat Clear Calc 204.14 Est GFR (MDRD) Af Amer 141 Est GFR (MDRD) Non-Af 117 BUN/Creatinine Ratio 21.4 H Glucose 133 H Lactic Acid 2.0 Calcium 8.2 L Radiography Diagnostic Testing: Clinical Impression(s) from Imaging Studies Foot X-Ray 09/27/23 22:02 IMPRESSION: Negative right foot x-rays. Electronically Signed: Tone Weinberg MD at 23:42 EDT , Discharge Plan Triage Chief Complaint: Lower Extremity Injury ED Midlevel Provider: Angela Lundy ED Provider: Danielito Ford Dx/Rx/DC Orders Clinical Impression: Pancytopenia, History of acute lymphoblastic leukemia (ALL), Acute pain of right foot, Petechial hemorrhage Instructions: ED Foot Contusion, ED Petechiae Prescriptions: New oxycodone-acetaminophen 5-325 mg tablet 1 tab PO Q6H PRN PRN (Reason: Pain) 3 Days Qty: 12 0RF No Action prednisone 10 mg tablet 5 mg PO DAILY magnesium oxide 400 mg (241.3 mg magnesium) tablet 800 mg PO BID pantoprazole 40 mg tablet,delayed release (DR/EC) 40 mg PO BID posaconazole 100 mg tablet,delayed release (DR/EC) 300 mg PO DAILY sulfamethoxazole-trimethoprim 800-160 mg tablet 1 tab PO .COMPLEX Rx Instructions: 1 TAB orally; - Jakafi 5 mg tablet 5 mg PO BID tacrolimus 0.5 mg capsule 2 mg PO DAILY Rx Instructions: .5mg in hs Eliquis 5 mg tablet 5 mg PO .COMPLEX Rx Instructions: 5 mg orally bid; if platelets are above 50,000 Primary Care Provider: Care Physician,No Primary Referrals: Care Physician,No Primary [Primary Care Provider] - Activity Restrictions/Additional Instructions: Your labs are stable from your recent ones. No fracture on x-ray. Discussed with pulmonary transplant fellow, continue to hold your Eliquis. Monitor symptoms. Pain medicine prescribed. Use postop shoe and crutches for support. If your symptoms progress, develop fevers or chills, return for reevaluation. Otherwise follow-up with Dr. Pandey. Print Language: Maltese Disposition Disposition: Home, Self Care
[2023-09-27 21:31] LABS: Absolute Lymphocyte Count 0.42 X10^3/uL (0.83-4.51); Absolute Neutrophil Count 1.5 X10^3/uL (2.0-7.7); Eosinophil# 0.01 X10^3/uL; Eosinophils% 0.5 % (0-5); Hematocrit 23.9 % (40-54); Hemoglobin 7.6 g/dL (13.0-16.5); Lymphocyte # 0.42 X10^3/ul (0.83-4.51); Lymphocyte % 19.2 % (19-41); Mean Corp Hgb Conc 31.8 g/dL (32-36); Mean Corpuscular Hgb 32.8 pg (27.0-32.0); Monocyte# 0.18 X10^3/uL; Monocyte% 8.2 % (0-10); NRBC Flagged by Analyzer 2.3 % (0-5); Neutrophil # 1.52 X10^3/uL (2.7-7.7); Neutrophil % 69.4 % (47-70); POSITIVE COUNT YES; POSITIVE DIFFERENTIAL YES; POSITIVE MORPHOLOGY YES; RBC Distribution Width CV 19.7 % (11.6-14.6); RBC Distribution Width SD 72.9 fl (35.1-43.9); Red Blood Count 2.32 M/mm3 (4.6-6.2); White Blood Count 2.2 K/mm3 (4.4-11.0)
[2023-09-27 21:36] LABS: Differential Indicated SCAN CRITERIA MET; Platelet Count 40 K/mm3 (150-450)
[2023-09-27 21:44] LABS: Anion Gap 8 (5-15); BUN 18 mg/dL (7-18); BUN/Creat Ratio 21.4 RATIO (10-20); Calcium,Total 8.2 mg/dL (8.5-10.1); Chloride 112 mmol/L (98-107); Creatinine, Serum 0.84 mg/dL (0.70-1.30); EST Glomerular Filtration Rate 117 mL/min (>60); Est Glom Filt Rate - Afr Amer 141 mL/min (>60); Estimated Creatinine Clearance 204.14 ml/min; Glucose 133 mg/dL (74-106); Potassium 3.4 mmol/L (3.5-5.1); Sodium Level 145 mmol/L (136-145)
[2023-09-27 21:47] VITALS: BP 124/84; PULSE 90; RESP 18; TEMP 37.5; O2SAT 100
[2023-09-27 22:00] VITALS: BP 128/76; PULSE 87; RESP 16; TEMP 36.8; O2SAT 100
--- NOTE | 2023-09-27 22:02 | RAD_ITS ---
EXAM: XR RIGHT FOOT COMPLETE, 3 OR MORE VIEWS CLINICAL INDICATION: PAIN TECHNIQUE: Frontal, lateral and oblique views of the right foot. COMPARISON: No relevant prior studies available. FINDINGS: BONES/JOINTS: Type II accessory navicular. No acute fracture. No subluxation. Normal alignment. Preservation of the joint space. No sclerotic or destructive changes observed. SOFT TISSUES: Soft tissue swelling along the dorsal aspect of the forefoot and midfoot. No soft tissue gas. No radiopaque foreign body. RAD/Foot min 3 Views IMPRESSION: Negative right foot x-rays. Electronically Signed: Tone Weinberg MD at 23:42 EDT ,
[2023-09-27 22:04] LABS: Anisocytosis 2+; Differential Comment SCANNED; Hypochromasia 1+; Macrocytosis 1+; Microcytosis 1+; Platelet Estimate MKD DEC (ADEQ)
[2023-09-27 22:32] VITALS: BP 128/76
[2023-09-27 23:00] VITALS: BP 116/62; PULSE 76; RESP 18; TEMP 37.2; O2SAT 100
[2023-09-28] MEDS: 0.9 % NaCl (Sterile) Posiflush 10 mL IV (00:01)
[2023-09-28 00:07] VITALS: BP 128/71; PULSE 78; RESP 16; TEMP 37; O2SAT 100
[2023-09-28 01:52] LABS: Reflex Lactate? Y
[2023-09-29 14:41] LABS: Pathologist Review Reviewed
== END 2023-09-28 00:08 | disposition home or self-care (01) ==
PROVIDERS: Physician Assistant; Emergency Provider Emergency Medicine; Visit Provider Emergency Medicine
DX: D61.818 Other pancytopenia (principal); Z94.81 Bone marrow transplant status; M79.89 Other specified soft tissue disorders; M79.671 Pain in right foot; R23.3 Spontaneous ecchymoses; Z86.718 Personal history of other venous thrombosis and embolism; Z79.01 Long term (current) use of anticoagulants; Z85.6 Personal history of leukemia
CPT/HCPCS: 36591; 73630; 80048; 83605; 85025; 87040; 99285; A4216